=== PATIENT | female | born 1995 | race Caucasian/White ===

== ENCOUNTER 2016-08-31 19:20 | Emergency (ER) | payer OTHER ==
[~2016-08-31] VITALS: Ht 152.4 cm; Wt 90.0 kg
[~2016-08-31 19:20] MED LIST: AMOXICILLIN500 MG PO; BACTRIM DS1 TAB PO; CYCLOBENZAPR10 MG PO; DARVOCET-N100 MG OR; ERYTHROMYCIN O3.5 GM OD; FIORICET PO; IMPLANON68 MG; IRON325 MG PO; LORTAB 5/3255 MG PO; MACRODANTIN100 MG PO; NAPROSYN500 MG PO; NAPROXEN500 MG PO; NO HOME MEDS; PAXIL30 MG PO; PERCOCET 5/325M1 TAB PO; PHENERGAN25 MG PO; PRE-NATAL PO; PYRIDIUM200 MG PO; TRI-PREVIFE1 PO; ULTRAM50 MG PO; XANAX0.25 MG PO; XANAX1 MG PO; ZOFRAN ODT4 MG PO
[2016-08-31 20:47] LABS: HEMOGLOBIN 14.1 g/dl (12.0-16.0); IMMATURE GRANULOCYTES 0.2 % (0.0-1.0); MEAN CORPUSCULAR HGB 28.5 pG CALC (26.0-32.0); MEAN CORPUSCULAR HGB CONC 34.4 g/L CALC (32.0-36.0); NEUT# 7.57 thou/uL (2.00-7.15); RED BLOOD COUNT 4.94 mill/uL (4.20-5.60); RED CELL DISTRI WIDTH 13.1 % (11.5-15.5)
[2016-08-31 20:58] LABS: ALBUMIN 4.5 g/dL (3.2-5.0); ALKALINE PHOSPHATASE 74 u/l (38-126); AMYLASE 56 u/l (30-110); ANION GAP 15 (6-22 (CALC)); BILIRUBIN, TOTAL 0.5 mg/dL (0.0-1.4); BUN 5 mg/dL (7-17); BUN/CREATININE RATIO 8 (12-20 (CALC)); CALCIUM 9.3 mg/dL (8.4-10.2); CARBON DIOXIDE 30 mmol/l (22-30); CHLORIDE 102 mmol/l (95-108); CREATININE 0.7 mg/dL (0.5-1.0); GFR > 60 ML/MIN (>=60 (CALC)); GFR FOR AFR.AMER. > 60 ML/MIN (>=60 (CALC)); GLUCOSE 85 mg/dL (65-105); LIPASE 62 u/l (23-300); POTASSIUM 3.3 mmol/l (3.5-5.1); SGOT/AST 23 u/l (14-36); SGPT/ALT 26 u/l (9-52); SODIUM 143 mmol/l (137-146); TOTAL PROTEIN 8.1 g/dL (6.3-8.2)
[2016-08-31 20:59] LABS: INFLUENZA A NONE DETECTED (NONE DETECT); INFLUENZA B NONE DETECTED (NONE DETECT)
[2016-08-31] MEDS ORDERED: AMOXICILLIN500 MG PO (21:46)
[2016-08-31 21:57] VITALS: BP 118/72
== END 2016-08-31 21:58 | disposition home or self-care (01) | DRG 153 ==
LOC: ED 19:20
PROVIDERS: Emergency Medicine
DX: J02.0 Streptococcal pharyngitis (principal); R05 Cough; R11.2 Nausea with vomiting, unspecified

== ENCOUNTER 2017-10-06 10:39 | Emergency (ER) | payer OTHER ==
[~2017-10-06] VITALS: Ht 152.4 cm; Wt 81.0 kg
[2017-10-06 11:27] LABS: HEMATOCRIT 42.2 % (37.0-47.0); HEMOGLOBIN 14.2 g/dl (12.0-16.0); IMMATURE GRANULOCYTES 0.2 % (0.0-1.0); MEAN CELL VOLUME 87.2 fL CALC (80.0-100.0); MEAN CORPUSCULAR HGB 29.3 pG CALC (26.0-32.0); MEAN CORPUSCULAR HGB CONC 33.6 g/L CALC (32.0-36.0); NEUT# 8.21 thou/uL (2.00-7.15); RED BLOOD COUNT 4.84 mill/uL (4.20-5.60); RED CELL DISTRI WIDTH 12.4 % (11.5-15.5)
[2017-10-06 11:38] LABS: ANION GAP 15 (6-22 (CALC)); BUN 6 mg/dL (7-17); BUN/CREATININE RATIO 10 (12-20 (CALC)); CARBON DIOXIDE 25 mmol/l (22-30); CHLORIDE 106 mmol/l (95-108); CREATININE 0.6 mg/dL (0.5-1.0); GFR > 60 ML/MIN (>=60 (CALC)); GFR FOR AFR.AMER. > 60 ML/MIN (>=60 (CALC)); POTASSIUM 3.8 mmol/l (3.5-5.1); SODIUM 142 mmol/l (137-146)
[2017-10-06] MEDS ORDERED: PREDNISONE50 MG PO (14:45)
[2017-10-06] MEDS ORDERED: FLONASE AL50 MCG/ACT NAB (14:45)
[2017-10-06] MEDS ORDERED: ALL DAY10 MG PO (14:45)
[2017-10-06] MEDS ORDERED: ZPAK PO (14:45)
[2017-10-06] MEDS ORDERED: PROAIR HFA108 MCG/AC PO (14:46)
[2017-10-06 15:13] VITALS: BP 94/54
== END 2017-10-06 15:13 | disposition home or self-care (01) | DRG 153 ==
LOC: ED 10:39
PROVIDERS: Family Medicine
DX: J06.9 Acute upper respiratory infection, unspecified (principal); J30.9 Allergic rhinitis, unspecified; R07.89 Other chest pain; F17.210 Nicotine dependence, cigarettes, uncomplicated; F41.9 Anxiety disorder, unspecified; R05 Cough; R06.02 Shortness of breath; J02.9 Acute pharyngitis, unspecified

== ENCOUNTER 2018-06-07 11:53 | Emergency (ER) | payer OTHER ==
[~2018-06-07] VITALS: Ht 152.4 cm; Wt 86.4 kg
[~2018-06-07 11:53] MED LIST changes: +ALL DAY10 MG PO; +FLONASE AL50 MCG/ACT NAB; +PREDNISONE50 MG PO; +PROAIR HFA108 MCG/AC PO; +ZPAK PO
[2018-06-07] MEDS ORDERED: AMOXICILLIN875 MG PO (12:17)
[2018-06-07 12:21] VITALS: BP 115/69
== END 2018-06-07 12:21 | disposition home or self-care (01) ==
LOC: ED 11:53
DX: J02.9 Acute pharyngitis, unspecified (principal); H66.93 Otitis media, unspecified, bilateral; H92.03 Otalgia, bilateral

== ENCOUNTER 2019-04-02 09:48 | Emergency (ER) | payer SELFPAY ==
[~2019-04-02] VITALS: Ht 152.4 cm; Wt 84.0 kg
[~2019-04-02 09:48] MED LIST changes: +AMOXICILLIN875 MG PO
[2019-04-02 10:11] LABS: URINE BILIRUBIN - DIPSTICK NEGATIVE (NEGATIVE); URINE BLOOD DIPSTICK NEGATIVE (NEGATIVE); URINE COLOR YELLOW; URINE GLUCOSE - DIPSTICK NEGATIVE (NEGATIVE); URINE KETONE NEGATIVE (NEGATIVE); URINE LEUK ESTERASE NEGATIVE (NEGATIVE); URINE NITRITE - DIPSTICK NEGATIVE (Negative); URINE PH 5.5 (4.5-8.0); URINE PROTEIN - DIPSTICK NEGATIVE (NEG-TRACE); URINE SPECIFIC GRAVITY >=1.030; URINE UROBILINOGEN - DIPSTICK 0.2 E.U./dL (0.2)
[2019-04-02 11:12] VITALS: BP 147/85
[2019-04-02] MEDS ORDERED: NAPROXEN DR500 MG PO (11:16)
== END 2019-04-02 11:21 | disposition home or self-care (01) | DRG 761 ==
LOC: ED 09:48
DX: T83.32XA Displacement of intrauterine contraceptive device, initial encounter (principal); N76.0 Acute vaginitis; F17.210 Nicotine dependence, cigarettes, uncomplicated; Y83.1 Surgical operation with implant of artificial internal device as the cause of abnormal reaction of the patient, or of later complication, without mention of misadventure at the time of the procedure

== ENCOUNTER 2019-08-10 18:15 | Emergency (ER) | payer SELFPAY ==
[~2019-08-10 18:15] MED LIST changes: +NAPROXEN DR500 MG PO
[2019-08-10] MEDS ORDERED: CORTISPORIN OTI10 ML AU (18:44)
[2019-08-10] MEDS ORDERED: AMOX/K CLAV875 M1 PO (18:44)
[2019-08-10] MEDS ORDERED: CODEINE/GUAIFEN1 SOL PO (18:44)
[2019-08-10 19:01] VITALS: BP 104/70
== END 2019-08-10 19:13 | disposition home or self-care (01) | DRG 153 ==
LOC: ED 18:15
DX: J06.9 Acute upper respiratory infection, unspecified (principal); H66.93 Otitis media, unspecified, bilateral; H60.93 Unspecified otitis externa, bilateral; F17.210 Nicotine dependence, cigarettes, uncomplicated

== ENCOUNTER 2020-10-31 03:24 | Emergency (ER) | payer OTHER ==
[~2020-10-31] VITALS: Ht 152.4 cm; Wt 84.0 kg
[~2020-10-31 03:24] MED LIST changes: +AMOX/K CLAV875 M1 PO; +CODEINE/GUAIFEN1 SOL PO; +CORTISPORIN OTI10 ML AU
[2020-10-31 04:31] VITALS: BP 108/60
== END 2020-10-31 04:38 | disposition home or self-care (01) ==
LOC: ED 03:24
DX: H60.92 Unspecified otitis externa, left ear (principal); F41.9 Anxiety disorder, unspecified; F17.210 Nicotine dependence, cigarettes, uncomplicated

== ENCOUNTER 2021-12-28 17:59 | Emergency (ER) | payer OTHER ==
[2021-12-28] VITALS (9 sets, daily range): BP systolic 82–102; BP diastolic 42–66
[~2021-12-28] VITALS: Ht 152.4 cm; Wt 84.0 kg
[2021-12-28 19:04] LABS: HEMATOCRIT 38.4 % (37.0-47.0); HEMOGLOBIN 13.2 g/dl (12.0-16.0); IMMATURE GRANULOCYTES 0.2 % (0.0-5.0); MEAN CELL VOLUME 86.1 fL CALC (80.0-100.0); MEAN CORPUSCULAR HGB 29.6 pG CALC (26.0-32.0); MEAN CORPUSCULAR HGB CONC 34.4 g/dL CAL (32.0-36.0); NEUT# 8.92 thou/uL (2.00-7.15); RED BLOOD COUNT 4.46 mill/uL (4.20-5.60); RED CELL DISTRI WIDTH 12.4 % (11.5-15.5)
[2021-12-28 19:15] LABS: URINE BILIRUBIN - DIPSTICK NEGATIVE (NEGATIVE); URINE BLOOD DIPSTICK NEGATIVE (NEGATIVE); URINE COLOR YELLOW; URINE GLUCOSE - DIPSTICK NEGATIVE (NEGATIVE); URINE KETONE NEGATIVE (NEGATIVE); URINE PH 6.5 (4.5-8.0); URINE PROTEIN - DIPSTICK NEGATIVE (NEG-TRACE); URINE UROBILINOGEN - DIPSTICK 0.2 E.U./dL (0.2)
[2021-12-28 19:18] LABS: URINE LEUK ESTERASE SMALL (NEGATIVE); URINE NITRITE - DIPSTICK NEGATIVE (Negative)
[2021-12-28 19:27] LABS: URINE BACTERIA FEW hpf; URINE SQUAMOUS EPITHELIAL CELL FEW EPI/hpf (0-FEW); URINE WBC 20-50 WBC/hpf (0-5)
[2021-12-28 19:34] LABS: ALBUMIN 3.7 g/dL (3.2-5.0); ALKALINE PHOSPHATASE 54 u/l (38-126); ANION GAP 9 (6-22 (CALC)); BUN 5 mg/dL (7-17); BUN/CREATININE RATIO 12 (12-20 (CALC)); CARBON DIOXIDE 24 mmol/l (22-30); CHLORIDE 105 mmol/l (95-108); CREATININE 0.4 mg/dL (0.5-1.0); GFR FOR AFR.AMER. > 60 ML/MIN (>=60 (CALC)); GFR OTHER RACES > 60 ML/MIN (>=60 (CALC)); MAGNESIUM 1.7 mg/dL (1.6-2.3); POTASSIUM 3.8 mmol/l (3.5-5.1); SGOT/AST 13 u/l (14-36); SODIUM 135 mmol/l (137-146)
[2021-12-28 19:39] LABS: BILIRUBIN, TOTAL 0.2 mg/dL (0.0-1.4); TOTAL PROTEIN 6.4 g/dL (6.3-8.2)
[2021-12-28 20:15] LABS: BETA-HCG, QUANT(RESULT NUMBER) 93111 mIU/mL
[2021-12-28] MEDS ORDERED: ZOFRAN4 MG/TAB PO (21:11)
[2021-12-28] MEDS ORDERED: KEFLEX500 MG PO (21:11)
== END 2021-12-28 21:58 | disposition home or self-care (01) ==
LOC: ED 17:59
PROVIDERS: Family Medicine
DX: O23.41 Unspecified infection of urinary tract in pregnancy, first trimester (principal); N39.0 Urinary tract infection, site not specified; O99.341 Other mental disorders complicating pregnancy, first trimester; F41.9 Anxiety disorder, unspecified; O99.331 Smoking (tobacco) complicating pregnancy, first trimester; F17.200 Nicotine dependence, unspecified, uncomplicated; Z3A.09 9 weeks gestation of pregnancy

== ENCOUNTER 2022-01-01 17:50 | Emergency (ER) | payer OTHER ==
[~2022-01-01] VITALS: Ht 152.4 cm; Wt 84.1 kg
[2022-01-01] VITALS (10 sets, daily range): BP systolic 96–114; BP diastolic 56–71
[~2022-01-01 17:50] MED LIST changes: +KEFLEX500 MG PO; +ZOFRAN4 MG/TAB PO
[2022-01-01 19:10] LABS: HEMATOCRIT 38.7 % (37.0-47.0); HEMOGLOBIN 13.5 g/dl (12.0-16.0); IMMATURE GRANULOCYTES 0.1 % (0.0-5.0); MEAN CELL VOLUME 84.9 fL CALC (80.0-100.0); MEAN CORPUSCULAR HGB 29.6 pG CALC (26.0-32.0); MEAN CORPUSCULAR HGB CONC 34.9 g/dL CAL (32.0-36.0); NEUT# 7.22 thou/uL (2.00-7.15); RED BLOOD COUNT 4.56 mill/uL (4.20-5.60); RED CELL DISTRI WIDTH 12.2 % (11.5-15.5)
[2022-01-01 19:11] LABS: URINE BLOOD DIPSTICK TRACE-INTACT (NEGATIVE); URINE COLOR YELLOW; URINE GLUCOSE - DIPSTICK NEGATIVE (NEGATIVE); URINE KETONE 15 mg/dL (NEGATIVE); URINE LEUK ESTERASE NEGATIVE (NEGATIVE); URINE PROTEIN - DIPSTICK NEGATIVE (NEG-TRACE); URINE SPECIFIC GRAVITY >=1.030; URINE UROBILINOGEN - DIPSTICK 0.2 E.U./dL (0.2)
[2022-01-01 19:16] LABS: URINE BILIRUBIN - DIPSTICK SMALL (NEGATIVE)
[2022-01-01 19:17] LABS: URINE NITRITE - DIPSTICK NEGATIVE (Negative)
[2022-01-01 19:31] LABS: ALKALINE PHOSPHATASE 56 u/l (38-126); ANION GAP 11 (6-22 (CALC)); BUN 5 mg/dL (7-17); BUN/CREATININE RATIO 12 (12-20 (CALC)); CARBON DIOXIDE 24 mmol/l (22-30); CHLORIDE 104 mmol/l (95-108); CREATININE 0.5 mg/dL (0.5-1.0); GFR FOR AFR.AMER. > 60 ML/MIN (>=60 (CALC)); GFR OTHER RACES > 60 ML/MIN (>=60 (CALC)); LIPASE 35 u/l (23-300); POTASSIUM 3.7 mmol/l (3.5-5.1); SGOT/AST 17 u/l (14-36); SODIUM 135 mmol/l (137-146); TOTAL PROTEIN 6.7 g/dL (6.3-8.2)
[2022-01-01 19:43] LABS: BILIRUBIN, TOTAL 0.7 mg/dL (0.0-1.4)
[2022-01-01] MEDS ORDERED: REGLAN10 MG PO (20:01)
[2022-01-01 20:15] LABS: BETA-HCG, QUANT(RESULT NUMBER) 96981 mIU/mL
== END 2022-01-01 20:14 | disposition home or self-care (01) ==
LOC: ED 17:50
PROVIDERS: Nurse Practitioner
DX: O26.891 Other specified pregnancy related conditions, first trimester (principal); R11.2 Nausea with vomiting, unspecified; O99.341 Other mental disorders complicating pregnancy, first trimester; F41.9 Anxiety disorder, unspecified; Z3A.01 Less than 8 weeks gestation of pregnancy; Z20.822 Contact with and (suspected) exposure to COVID-19

== ENCOUNTER 2022-02-16 09:44 | Emergency (ER) | payer OTHER ==
[~2022-02-16] VITALS: Ht 152.4 cm; Wt 83.9 kg
[~2022-02-16 09:44] MED LIST changes: +REGLAN10 MG PO
[2022-02-16 10:03] VITALS: BP 96/60
[2022-02-16 10:18] LABS: URINE BILIRUBIN - DIPSTICK NEGATIVE (NEGATIVE); URINE BLOOD DIPSTICK TRACE-INTACT (NEGATIVE); URINE COLOR YELLOW; URINE GLUCOSE - DIPSTICK NEGATIVE (NEGATIVE); URINE KETONE TRACE mg/dL (NEGATIVE); URINE PH 5.5 (4.5-8.0); URINE PROTEIN - DIPSTICK TRACE mg/dL (NEG-TRACE); URINE SPECIFIC GRAVITY >=1.030; URINE UROBILINOGEN - DIPSTICK 0.2 E.U./dL (0.2)
[2022-02-16 10:21] LABS: URINE LEUK ESTERASE MODERATE (NEGATIVE); URINE NITRITE - DIPSTICK NEGATIVE (Negative)
[2022-02-16 10:31] VITALS: BP 83/54
[2022-02-16 10:31] LABS: URINE SQUAMOUS EPITHELIAL CELL MODERATE EPI/hpf (0-FEW)
[2022-02-16] MEDS ORDERED: CEFDINIR300 MG PO (10:42)
[2022-02-16 10:45] VITALS: BP 98/55
[2022-02-16 10:48] VITALS: BP 98/55
== END 2022-02-16 10:58 | disposition home or self-care (01) ==
LOC: ED 09:44
PROVIDERS: Family Medicine
DX: O23.42 Unspecified infection of urinary tract in pregnancy, second trimester (principal); N39.0 Urinary tract infection, site not specified; Z3A.16 16 weeks gestation of pregnancy

== ENCOUNTER 2022-04-28 07:27 | Emergency (ER) | payer OTHER ==
[~2022-04-28] VITALS: Ht 152.4 cm; Wt 84.0 kg
[2022-04-28] VITALS (7 sets, daily range): BP systolic 95–108; BP diastolic 61–76
[~2022-04-28 07:27] MED LIST changes: +CEFDINIR300 MG PO
[2022-04-28] MEDS ORDERED: PRENATAL1 TA1 PO (07:37)
[2022-04-28 08:07] LABS: HEMATOCRIT 34.7 % (37.0-47.0); HEMOGLOBIN 11.8 g/dl (12.0-16.0); IMMATURE GRANULOCYTES 0.1 % (0.0-5.0); MEAN CELL VOLUME 87.6 fL CALC (80.0-100.0); MEAN CORPUSCULAR HGB 29.8 pG CALC (26.0-32.0); NEUT# 11.31 thou/uL (2.00-7.15); RED BLOOD COUNT 3.96 mill/uL (4.20-5.60); RED CELL DISTRI WIDTH 13.5 % (11.5-15.5)
[2022-04-28 08:35] LABS: ALBUMIN 3.4 g/dL (3.2-5.0); ALKALINE PHOSPHATASE 71 u/l (38-126); ANION GAP 10 (6-22 (CALC)); BILIRUBIN, TOTAL 0.2 mg/dL (0.0-1.4); BUN 5 mg/dL (7-17); BUN/CREATININE RATIO 10 (12-20 (CALC)); CARBON DIOXIDE 24 mmol/l (22-30); CHLORIDE 108 mmol/l (95-108); CREATININE 0.4 mg/dL (0.5-1.0); GFR FOR AFR.AMER. > 60 ML/MIN (>=60 (CALC)); GFR OTHER RACES > 60 ML/MIN (>=60 (CALC)); POTASSIUM 3.6 mmol/l (3.5-5.1); SGOT/AST 18 u/l (14-36); SODIUM 138 mmol/l (137-146); TOTAL PROTEIN 6.2 g/dL (6.3-8.2)
[2022-04-28 08:52] LABS: BETA-HCG, QUANT(RESULT NUMBER) 2119 mIU/mL
[2022-04-28] MEDS ORDERED: ZPAK PO (09:01)
== END 2022-04-28 09:20 | disposition home or self-care (01) ==
LOC: ED 07:27
PROVIDERS: Family Medicine
DX: O99.512 Diseases of the respiratory system complicating pregnancy, second trimester (principal); J06.9 Acute upper respiratory infection, unspecified; B97.29 Other coronavirus as the cause of diseases classified elsewhere; Z3A.26 26 weeks gestation of pregnancy; Z20.822 Contact with and (suspected) exposure to COVID-19

== ENCOUNTER 2022-08-31 22:46 | Emergency (ER) | payer OTHER ==
[~2022-08-31] VITALS: Ht 152.4 cm; Wt 81.0 kg
[~2022-08-31 22:46] MED LIST changes: +PRENATAL1 TA1 PO
[2022-08-31] MEDS ORDERED: SERTRALINE50 MG PO (23:39)
[2022-09-01] MEDS ORDERED: FLOXIN OTIC0.3 % AU (00:44)
[2022-09-01] MEDS ORDERED: AMOXICILLIN/PO500 MG PO (00:44)
[2022-09-01 01:39] VITALS: BP 116/79
== END 2022-09-01 01:46 | disposition home or self-care (01) ==
LOC: ED 22:46
DX: H66.93 Otitis media, unspecified, bilateral (principal); J02.9 Acute pharyngitis, unspecified; F41.9 Anxiety disorder, unspecified; Z20.822 Contact with and (suspected) exposure to COVID-19

== ENCOUNTER 2023-01-01 22:54 | Emergency (ER) | payer OTHER ==
[~2023-01-01] VITALS: Ht 152.4 cm; Wt 83.9 kg
[~2023-01-01 22:54] MED LIST changes: +AMOXICILLIN/PO500 MG PO; +FLOXIN OTIC0.3 % AU; +SERTRALINE50 MG PO
[2023-01-01] MEDS ORDERED: SPRINTEC 2828 DAY PO (23:10)
[2023-01-01 23:40] LABS: BASO% 0.1 % (0-3); EOS% 1.6 % (0-8); HEMATOCRIT 37.4 % (37.0-47.0); IMMATURE GRANULOCYTES 0.2 % (0.0-5.0); LYMPH% 26.4 % (15-41); MEAN CELL VOLUME 86.8 fL CALC (80.0-100.0); MEAN CORPUSCULAR HGB 27.8 pG CALC (26.0-32.0); MEAN CORPUSCULAR HGB CONC 32.1 g/dL CAL (32.0-36.0); MONO% 4.5 % (2-13); NEUT# 7.07 thou/uL (2.00-7.15); NEUT% 67.2 % (42-76); RED BLOOD COUNT 4.31 mill/uL (4.20-5.60); RED CELL DISTRI WIDTH 13.5 % (11.5-15.5)
[2023-01-01 23:45] VITALS: BP 104/65
[2023-01-02] VITALS: BP 98/62
[2023-01-02] MEDS ORDERED: VENTOLIN HFA IN (00:36)
[2023-01-02] MEDS ORDERED: PREDNISONE50 MG PO (00:36)
[2023-01-02 00:43] VITALS: BP 98/62
== END 2023-01-02 00:51 | disposition home or self-care (01) ==
LOC: ED 22:54
PROVIDERS: Family Medicine
DX: U07.0 Vaping-related disorder (principal); J06.9 Acute upper respiratory infection, unspecified; F41.9 Anxiety disorder, unspecified; F17.290 Nicotine dependence, other tobacco product, uncomplicated; Z20.822 Contact with and (suspected) exposure to COVID-19